=== PATIENT | female | born 1980 | race Caucasian/White ===

== ENCOUNTER 2019-06-03 16:31 | Observation (INO) ==
[2019-06-03] MEDS ORDERED: *HR* Promethazine 25 MG/ML VIAL IVP PRN (18:45)
[2019-06-03] MEDS ORDERED: Naloxone 0.4 MG/ML INJ IVP PRN (18:45)
[2019-06-03] MEDS ORDERED: Ondansetron ODT 4 MG TAB.RAPDIS SL PRN (18:45)
[2019-06-03 21:01] LABS: BUN/Creatinine Ratio 21 (6-26); Blood Urea Nitrogen 13 mg/dL (6-20); Calcium 7.9 mg/dL (8.6-10.3); Carbon Dioxide 22 mEq/L (23-29); Chloride 96 mEq/L (98-107); Chol/HDL Ratio 18.4 (0-4.9); Cholesterol 553 mg/dL (< 200); Glucose 92 mg/dL (70-105); HDL Cholesterol 30 mg/dL (40-59); Osmolality,Calculated 264 (280-300); Sodium 127 mEq/L (136-145); Triglycerides 4202 mg/dL (< 150); eGFR For African Americans > 60 (> 60); eGFR For Non-African Americans > 60 (> 60)
--- NOTE | 2019-06-03 21:44 | Internal Med History&Physical ---
Date of Encounter: 06/03/19 Time of Encounter: 20:30 Internal Medicine - H&P: HPI Chief complaint: Chest Pain Admitted From: Home Plans for Post Hospital Care: Home History of present illness: Ms. Valera is a 38 year old female with past medical history significant for hypertension and tobacco abuse who presents as hospital transfer from [facility] ER where she presented for chest pain. Reports she has been having intermittent substernal chest pressure over past month occurring more frequently and becoming more severe. Pain radiates down her left arm and is associated with lightheadedness, nausea, shortness of breath, and diaphoresis. Pain is rated at 10/10 when at its worst. Patient was given aspirin and nitroglycerin at sending ER which completely resolved her symptoms. Sending ER reported EKG as sinus tachycardia with no acute changes. Sending ER obtained a chest x-ray which showed no acute process. Sending ER found patient to have an elevated d- dimer at 1126 so CTA of the chest was obtained which showed no evidence of pulmonary embolism or acute pulmonary abnormality, and fatty infiltration of the liver. Currently patient continues to deny any pain. Currently denies any headache, numbness, tingling, chest pain, shortness of breath, cough, abdominal pain, nausea, bowel or bladder changes. Denies any previous echocardiogram or cardiac stress test. Reports family cardiac history including grandfather with [place]. Follows regularly with her PCP annually. Reports daily cigarette smoking and occasional alcohol use. Past Med Surg Social Fam HX - Past Medical History Medical history: hypertension Psychiatric history: no psych history - Past Surgical History Surgical History: other Additional surgical history: tubal ligation - Social History Smoking Status: Current every day smoker Packs per day: 0.5 Smokeless Tobacco Status: No Alcohol use: occasionally Drug use: none - Family History Brother Adopted: No Living Status: Age at : 53 Cause of : Diabetes Maternal Grandfather Living Status: Cause of : Diabetes Paternal Grandfather Living Status: Cause of : [place] Internal Medicine - H&P: Meds Losartan/Hydrochlorothiazide [Losartan-Hctz 100-12.5 mg Tab] 1 tab PO DAILY 06/03/19 [History] amLODIPine [Norvasc] 5 mg PO DAILY 06/03/19 [History] Allergy/AdvReac Type Severity Reaction Status Date / Time codeine Allergy Rash Verified 07/24/16 14:50 All Systems PM: A 10-system review of systems was performed and is negative for pertinent findings except as documented above in the HPI. - Constitutional Vitals: Temp Pulse Resp BP Pulse Ox 98.2 F 80 16 152/75 96 06/03/19 18:04 06/03/19 18:04 06/03/19 18:04 06/03/19 18:04 06/03/19 18:04 Exam: General: Alert and oriented. Skin:Normal color, no rash, no lesions. HEENT:Pupils equal, round and reactive. Cardiovascular:Normal S1 & S2, no rubs, murmurs or gallops. No JVD. Pulse regular. Lungs:Breath sounds decreased, no wheezes or crackles. Abdomen:Soft, non-tender, no rigidity. Extremities:No deformity, no edema or tenderness, no joint swelling or clubbing. Neurological:Normal cognition and motor skills. Pulses:Carotid and radial pulses normal +2. Rest of the physical exam is non contributory. Internal Med - H&P Results - Labs CBC & Chem 7: 06/03/19 19:05 Labs: Cardiac Enzymes 06/03/19 Range/Units 19:05 Troponin I < 0.03 (< 0.04) ng/mL - Assessment and Plan (1) Chest pain Current Visit: No Status: Acute Assessment and plan: Reports intermittent substernal chest pressure over past month occurring more frequently and becoming more severe. Relieved with nitroglycerin and aspirin received at sending ER. Initial troponin negative, serial troponins ordered. Continuous cardiac monitoring. Echocardiogram ordered. Stress test ordered. Qualifiers: Chest pain type: unspecified Qualified Code(s): R07.9 - Chest pain, unspecified (2) Hyponatremia Current Visit: Yes Status: Acute Assessment and plan: Sodium decreased at sending ER at 129. Reports recent decreased oral intake. Repeat labs ordered including urine sodium and urine osmolality. (3) Fatty infiltration of liver Current Visit: Yes Status: Acute Assessment and plan: CTA of chest obtained at sending ER showed fatty infiltration of liver. Hepatic and Lipid panels ordered. (4) Elevated d-dimer Current Visit: Yes Status: Acute Assessment and plan: Elevated at 1126 at sending ER. CTA of chest obtained at sending ER negative for pulmonary embolism. (5) Hypertension Current Visit: Yes Status: Chronic Assessment and plan: Continue home medications once verified. Qualifiers: Hypertension type: unspecified Qualified Code(s): I10 - Essential (primary) hypertension (6) Tobacco abuse Current Visit: Yes Status: Chronic Assessment and plan: Cessation strongly encouraged. - Time Spent With Patient Total time spent is greater than 50% in coordination of care (as documented) at patient's floor/unit and/or counseling patient:
[2019-06-04] MEDS ORDERED: 0.9 % Sodium Chloride 500 ML IVC ONE (02:38)
[2019-06-04 03:09] LABS: Basophils % 0.4 %; Eosinophils # 0.2 K/mcL (0.0-0.6); Eosinophils % 2.6 %; Hematocrit 35.1 % (35.3-44.9); Hemoglobin 12.5 g/dL (11.5-15.4); Immature Granulocytes % 0.3 % (0-4); Lymphocytes # 2.7 K/mcL (0.6-4.6); Lymphocytes % 39.1 %; Mean Corpuscular HGB Conc 35.6 g/dL (31.6-35.5); Mean Corpuscular Hemoglobin 33.3 pg (28.0-33.3); Mean Corpuscular Volume 93.6 fL (83.0-100.0); Monocytes # 0.4 K/mcL (0.0-1.3); Monocytes % 5.6 %; Neutrophils # 3.7 K/mcL (1.6-8.9); Platelet Count 168 K/mcL (140-400); Red Blood Count 3.75 M/mcL (3.82-4.97); Red Cell Distribution Width 12.7 % (11.5-14.5)
[2019-06-04 05:29] LABS: Albumin/Globulin Ratio 2.2 (1.1-2.2); BUN/Creatinine Ratio 18 (6-26); Bilirubin,Direct 0.1 mg/dL (0.0-0.2); Bilirubin,Indirect 0.1 mg/dL (0.0-1.2); Bilirubin,Total 0.2 mg/dL (0.3-1.0); Blood Urea Nitrogen 11 mg/dL (6-20); Calcium 7.8 mg/dL (8.6-10.3); Carbon Dioxide 23 mEq/L (23-29); Chloride 98 mEq/L (98-107); Globulin 1.8 g/dL (2.4-3.5); Glucose 80 mg/dL (70-105); Osmolality,Calculated 272 (280-300); Sodium 132 mEq/L (136-145); Total Protein 5.8 g/dL (6.4-8.9); eGFR For African Americans > 60 (> 60); eGFR For Non-African Americans > 60 (> 60)
[2019-06-04] MEDS ORDERED: *HR* Heparin 5,000 UNIT/ML VIAL SQ SCH (06:00)
[2019-06-04] MEDS ORDERED: Regadenoson 0.4 MG/5 ML SYRINGE IVP ONE (06:04)
[2019-06-04 06:07] LABS: Magnesium 1.7 mg/dL (1.6-2.6); Thyroid Stimulating Hormone 3.253 mcIU/mL (0.340-5.600)
[2019-06-04] MEDS ORDERED: Aspirin 81 MG TAB.CHEW PO SCH (09:00)
[2019-06-04] MEDS ORDERED: Losartan/HCTZ 50-12.5 TABLET PO SCH (09:00)
[2019-06-04] MEDS ORDERED: amLODIPine 5 MG TABLET PO SCH (09:00)
[2019-06-04 11:28] VITALS: BP 109/66
--- NOTE | 2019-06-04 12:44 | Discharge Summary ---
- NOTES TO OUTPATIENT PROVIDER Notes to Outpatient Provider: f/u with PCP within 2 weeks. Date of Encounter: 06/04/19 Time of Encounter: 12:42 - Discharge Diagnosis (1) Chest pain Priority: Primary Status: Acute Qualifiers: Chest pain type: unspecified Qualified Code(s): R07.9 - Chest pain, unspecified (2) Fatty infiltration of liver Priority: Primary Status: Acute (3) Elevated d-dimer Priority: Primary Status: Acute (4) Hypertension Priority: Secondary Status: Chronic Qualifiers: Hypertension type: unspecified Qualified Code(s): I10 - Essential (primary) hypertension (5) Tobacco abuse Priority: Secondary Status: Chronic Hospital course: Ms. Valera is a 38 year old female with past medical history significant for hypertension and tobacco abuse who presents as hospital transfer from [facility] ER where she presented for chest pain. Reports she has been having intermittent substernal chest pressure over past month occurring more frequently and becoming more severe. Pain radiates down her left arm and is associated with lightheadedness, nausea, shortness of breath, and diaphoresis. Pain is rated at 10/10 when at its worst. Patient was given aspirin and nitroglycerin at sending ER which completely resolved her symptoms. Sending ER reported EKG as sinus tachycardia with no acute changes. Sending ER obtained a chest x-ray which showed no acute process. Sending ER found patient to have an elevated d- dimer at 1126 so CTA of the chest was obtained which showed no evidence of pulmonary embolism or acute pulmonary abnormality, and fatty infiltration of the liver. Currently patient continues to deny any pain. Serial troponin was negative. EKG has no acute ST-T change. Echo and stress nuclear test were unremarkable. labs showed a significantly elevated triglycerides and cholesterol, unclear this is caused by in-compliance with diet or intrinsic genetic disease, patient was instructed to continue follow-up with PCP, repeat lipid panel why she was strictly nothing by mouth. Patient is discharged home today, Discharge discussed with: patient Time spent discussing smoking cessation with patient: more than 10 minutes - Time Spent with Patient Total time spent providing and/or coordinating discharge services: Time spent: Greater than 30 minutes - Discharge Medications Prescriptions: Continued amLODIPine [Norvasc] 5 mg PO DAILY Losartan/Hydrochlorothiazide [Losartan-Hctz 100-12.5 mg Tab] 1 tab PO DAILY Home Medications: Losartan/Hydrochlorothiazide [Losartan-Hctz 100-12.5 mg Tab] 1 tab PO DAILY 06/03/19 [History] amLODIPine [Norvasc] 5 mg PO DAILY 06/03/19 [History] Allergies/Adverse Reactions: Allergy/AdvReac Type Severity Reaction Status Date / Time codeine Allergy Rash Verified 07/24/16 14:50 Date of admission: 06/03/19 17:45 Primary care physician: PCP NONE Anticipated date of discharge: 06/04/19 - Constitutional Vitals: Temp Pulse Resp BP Pulse Ox 98.0 F 79 16 109/66 94 06/04/19 11:23 06/04/19 11:23 06/04/19 11:23 06/04/19 11:23 06/04/19 11:23 General appearance: Present: A&O X 3 Exam: PHYSICAL EXAMINATION: GENERAL APPEARANCE: The patient is alert, oriented and in no acute distress. HEENT: Head is normocephalic. The sinuses are nontender. Pupils are equal and reactive. The nares are patent. Oropharynx clear without lesions. NECK: Supple without lymphadenopathy. HEART: Regular rate and rhythm. LUNGS: No crackles or wheezes are heard. ABDOMEN: Soft, nontender, nondistended with good bowel sounds heard. Inguinal area is normal. EXTREMITIES: Without cyanosis, clubbing or edema. NEUROLOGICAL: Gross nonfocal. SKIN: Warm and dry without any rash. - Patient Status Disposition: Home, Self-Care Condition: Fair Functional capacity at discharge: independent ambulation Overall status at discharge: patient is progressing back to baseline - Discharge Instructions Instructions: Chest Pain (DC), Chest Pain (GEN), Heart Healthy Diet (DC), Heart Healthy Diet (GEN), Cholesterol and Your Health (GEN) Follow Up With: Ida Suarez CNP [Advanced Practice Nurse] - 06/09/19 2:00 pm - Diet and Activity Activity: increase activity as tolerated Diet: low fat, low cholesterol, low salt diet
== END 2019-06-04 14:22 | disposition home or self-care (01) ==
LOC: 3BNU
PROVIDERS: ADMIT Internal Medicine; ATTEND Internal Medicine